=== PATIENT | female | born 1965 | race Caucasian/White ===

== ENCOUNTER 2016-02-19 14:05 | Emergency (ER) ==
[2016-02-19 14:45] LABS: MANUAL DIFF NEEDED? NO
[2016-02-19 14:51] LABS: URINE CULTURE NEEDED? NO; URINE MICRO REVIEW NEEDED? NO; URINE SOURCE CLEAN CATCH
[2016-02-19 14:56] LABS: BASO% 0.7 % (0.0-0.8); EOS# 0.09 X1000 (0.0-0.7); EOS% 1.2 % (0.0-10.0); HEMATOCRIT 38.5 % (37.0-47.0); HEMOGLOBIN 13.3 g/dL (12.0-16.0); LYMPH# 3.06 X1000 (1.2-3.4); LYMPH% 41.7 % (20.5-51.1); MCH 30.9 PG (27-31); MCHC 34.5 g/dL (33-37); MCV 89.3 FL (81-99); MONO# 0.39 X1000 (0.11-0.59); MONO% 5.3 % (1.7-9.3); MPV 9.9 FL (7.4-10.4); NEUT% 51.1 % (42.2-75.2); PLT 436 X1000 (130-400); RBC 4.31 XMIL (4.2-5.4)
[2016-02-19 14:57] LABS: BILIRUBIN URINE NEGATIVE (NEGATIVE); BLOOD URINE NEGATIVE (NEGATIVE); COLOR YELLOW; GLUCOSE URINE NEGATIVE (NEGATIVE); LEUKOCYTES URINE NEGATIVE (NEGATIVE); NITRITE URINE NEGATIVE (NEGATIVE); PROTEIN URINE NEGATIVE (NEGATIVE); SP GRAVITY URINE 1.008; TURBIDITY URINE CLEAR (CLEAR); UROBILINOGEN URINE NORMAL (NORMAL)
[2016-02-19 14:59] LABS: UR EPITHELIAL CELLS <10 /HPF (<10); URINE BACTERIA 1+ /HPF; URINE RBC <10 /HPF (<10); URINE WBC <10 /HPF (<10)
[2016-02-19 15:04] LABS: UR AMPHETAMINES QUAL NONE DETECTED (NONE DETECT); UR BARBITUATES QUAL NONE DETECTED (NONE DETECT); UR BENZODIAZEPIN QUAL PRESUMPTIVE POSITIVE (NONE DETECT); UR CANNABINOIDS QUAL NONE DETECTED (NONE DETECT); UR COCAINE QUAL NONE DETECTED (NONE DETECT); UR METHADONE QUAL NONE DETECTED (NONE DETECT); UR OPIATES QUAL PRESUMPTIVE POSITIVE (NONE DETECT); UR OXYCODONE QUAL NONE DETECTED (NONE DETECT); UR PCP QUAL NONE DETECTED (NONE DETECT)
[2016-02-19 15:14] LABS: AGAP 11; ALBUMIN 4.4 g/dL (3.5-5.0); ALKALINE PHOSPHATASE 53 U/L (32-104); BUN 14 mg/dL (8-22); CALCIUM 9.9 mg/dL (8.8-10.2); CHLORIDE 104 mmol/L (98-107); COSMO 283; GOT 25 U/L (10-30); GPT 32 U/L (10-36); POTASSIUM 3.8 mmol/L (3.5-5.1); SODIUM 142 mmol/L (136-145); TCO2 27 mmol/L (25-35); TOTAL BILIRUBIN 0.17 mg/dL (0.20-1.00); TOTAL PROTEIN 7.2 g/dL (6.3-8.3)
[2016-02-19 15:32] LABS: FREE T4 0.93 ng/dL (0.93-1.70)
--- NOTE | 2016-02-19 16:16 | PROVIDER DOCUMENTATION ---
HPI-General Adult - General Chief Complaint: Psych Stated Complaint: NEED EVAL Time Seen by Provider: 02/19/16 16:04 Source: patient Allergies/Adverse Reactions: Patient Allergies Allergy/AdvReac Type Severity Reaction Status Date / Time latex AdvReac Intermediate WHELPS AND Verified 02/19/16 15:08 ITCHING - History of Present Illness -Gen Adult Nature of Presenting Problems: Pt. is 50 yof that presents with c/o attempted suicide today by hanging. Pt. reports she was at [facility] for 11 days and was recently released. Pt. reports she has been taking her medications and states today the thought just came from no where. Pt. reports a Hx of PTSD, Major depressive disorder, and Anxiety. Pt. states she was in the process of tying the cord around her neck and her aunt came in and stopped her. Pt. reports some auditory and visual hallucinations. Location of Pain/Injury: reports: back (chronic). denies: head, face, mouth, neck, chest, upper extremity, hand(s), abdomen, pelvis, genitalia, lower extremity, feet, upper body, lower body, generalized Pain Radiation: reports: no radiation Quality of Pain: reports: aching. denies: burning, cramping, dull, fullness, indigestion, pressure, sharp, stabbing, tearing, throbbing, tightness Severity: reports: moderate. denies: mild, severe Onset/Duration: reports: abrupt, this morning Timing: reports: still present. denies: improving, gone now, resolved prior to arrival, intermittent, constant, changing over time, getting worse Context/Activities at Onset: reports: recent emotional stress. denies: recent physical stress, recent trauma history, possible bad food, cold exposure, out of country travel Modifying Factors: improves with: nothing Associated Symptoms: reports: anxiety, back/neck pain, other (Suicide attempt). denies: arm pain, chest pain, constipation, cough, diaphoresis, diarrhea, dizziness, EENT symptoms, fatigue, fever/chills, genitourinary problems, headaches, heartburn, joint pain, loss of appetite, malaise, muscle aches, sinus congestion/drainage, nausea, rash, seizure, shortness of breath, sensory/ motor loss, pain with inspiration, swelling/mass in abdomen, syncope, vomiting, weakness, trouble walking Similar Symptoms Previously?: Yes Recently seen or treated by another doctor?: Yes Review of Systems - Adult - REVIEW OF SYSTEMS - ADULT Constitutional: reports: see HPI. denies: chills, fever, fatique Eyes: reports: see HPI. denies: discharge, blurred vision, double vision, eye pain Ears, Nose, Mouth & Throat: reports: see HPI. denies: ear discharge, ear pain, nose pain, loose teeth, mouth/dental pain, throat swelling Cardiovascular: reports: see HPI. denies: chest pain, irregular heart rate, palpitations, syncope Respiratory: reports: see HPI. denies: cough, dyspnea on exertion, pleurisy, wheezing Gastrointestinal: reports: see HPI. denies: abdominal pain, hematemesis, diarrhea, nausea, vomiting Genitourinary: reports: see HPI. denies: dysuria, frequency, hematuria, incontinence, urgency Musculoskeletal: reports: see HPI, back pain. denies: bone pain, joint pain, muscle aches, neck pain Integumentary: reports: see HPI. denies: hives, hair loss, itching, nail changes, rash, skin thickening Neurological: reports: see HPI. denies: ataxia, headache/migraines, numbness, seizure, tremors Psychiatric: reports: see HPI, anxiety, depression, emotional problems, suicidal thoughts. denies: insomnia, panic attacks Endocrine: reports: see HPI. denies: cold intolerance, increased hunger, polyuria Past History - Adult - PAST MEDICAL HISTORY-ADULT Review of Records: reports: Old Records Reviewed, Nursing Assessment Review, Medications Reviewed, Social history reviewed & non-contributory. Major Childhood Illnesses: reports: denies history Cardiovascular: reports: HTN, hyperlipidemia Respiratory: reports: denies history Gastrointestinal: reports: diverticulosis, GERD, IBS Obstetrical/Gynecological: reports: denies history Genitourinary: reports: denies history Musculoskeletal: reports: arthritis, chronic pain, neck/back injury Neurological: reports: denies history Psychiatric: reports: anxiety, depression Endocrine/Immune: reports: denies history Other Conditions: reports: denies history - PRIOR SURGERIES/PROCEDURES Surgical/Procedure History: reports: back/neck - IMMUNIZATION STATUS Childhood Immunizations: See Nurse Assessment Flu Vaccine: See Nurse Assessment - FAMILY HISTORY Family History: reviewed, not pertinent Physical Exam-General - PHYSICAL EXAM-ADULT Initial Vital Signs Reviewed: Yes - CONSTITUTIONAL General Appearance: alert, moderate distress, thin, anxious. negative: obese, lethargic, slow to respond, obtunded, combative - EYES Eyes: PERRL/EOMI, pink conjunctivae. negative: conjuctival exudate, photophobia , subconjunctival hemorrhage - HEAD, EARS, NOSE, MOUTH & THROAT HENMT: normocephalic/atraumatic, moist mucous membranes. negative: angioedema, frontal tenderness - NECK Neck: non-tender, full range of motion, supple, normal inspection. negative: lymphadenopathy, trachial deviation, thyromegaly - RESPIRATORY Respiratory: lungs clear, normal breath sounds. negative: crackles, rales, rhonchi, stridor, wheezing - CARDIOVASCULAR Cardiovascular: normal peripheral pulses, regular rate, rhythm, no edema, no JVD , no murmur. negative: extra beats, friction rub, irregularly irregular - CHEST (BREASTS) Chest/Breast: deferred - GASTROINTESTINAL (ABDOMEN) Abdominal Exam: normal bowel sounds, non tender, soft. negative: distended, guarding, rigid, rebound, hernia, mass - GENITOURINARY Female Genitalia/Pelvic Exam: deferred Rectal Exam: deferred Hemoccult Exam: deferred - LYMPHATIC Lymphatic: no adenopathy. negative: axilla node tender, cervical node tenderness - MUSCULOSKELETAL Back Exam: normal inspection, no CVA tenderness, no vertebral tenderness. negative: ecchymosis, muscle spasm, vertebral tenderness Extremity: normal range of motion, non-tender, normal gait, normal inspection. negative: deformity, erythema, inflammation, swelling, tenderness Peripheral Pulses: radial (R): 2+, radial (L): 2+ - SKIN Integumentary: normal color, normal turgor, warm/dry. negative: cyanosis, diaphoresis, ecchymosis, erythema, jaundice, mottled, pallor, petechiae, purpura , rash, swelling, tenderness - NEUROLOGIC Neurologic: grossly normal, no motor/sensory deficits. negative: aphasia, facial droop, focal weakness, motor weakness, sensory deficit - PSYCHIATRIC Psych/Mental Status: oriented x 3, anxious, paranoid, other (suicidal) Progress - PLAN OF CARE/RESULTS Progress/Plan/Lab Results: Ike from [facility] states that he will find placement for the patient. Discussed results and plan of care with patient. Patient agrees with plan and verbalizes understanding. Vital Signs Temp Pulse Resp BP Pulse Ox 02/19/16 18:03 84 18 128/69 100 02/19/16 14:20 98.2 F 77 18 180/90 99 latex Adverse Reaction (Intermediate, Verified 02/19/16 15:08) WHELPS AND ITCHING Diazepam [Valium] 5 mg PO BID #60 tablet 02/13/16 Docusate Sodium [Colace] 100 mg PO BID #60 capsule 02/13/16 Fenofibrate [Tricor] 145 mg PO DAILY #0 tablet 02/13/16 Hydrocodone/APAP 10 mg/325 mg [[place]-10] 1 each PO Q8H PRN PRN #90 tablet Hyoscyamine [Levsin] 0.125 mg PO Q4H PRN PRN #0 tablet 02/13/16 Lamotrigine [Lamictal] 25 mg PO 0800,1400,2100 #90 tablet 02/13/16 Metoprolol [Lopressor] 25 mg PO BID #0 tablet 02/13/16 Olanzapine [Zyprexa] 5 mg PO QHS #30 tablet 02/13/16 Prazosin [Minipress] 1 mg PO QHS #30 capsule 02/13/16 Quetiapine [Seroquel] 100 mg PO QHS #0 tablet 02/13/16 Sertraline [Zoloft] 50 mg PO QAM #30 tablet 02/13/16 Tizanidine [Zanaflex] 2 mg PO BID #60 tablet 02/13/16 Dietary Diet Regular Diet Start WedFeb 18 1641 I&O 02/18/16 02/19/16 02/20/16 06:59 06:59 06:59 Output Total 50 Balance -50 Laboratory 02/19/16 02/19/16 02/19/16 14:42 14:42 14:32 WBC RBC Hgb Hct MCV MCH MCHC RDW Std Deviation Plt Count MPV Immature Gran % (Auto) Neut % (Auto) Lymph % (Auto) [place] % (Auto) Eos % (Auto) Baso % (Auto) Immature Gran # (Auto) Neut # (Auto) Lymph # (Auto) [place] # (Auto) Eos # (Auto) Baso # (Auto) Sodium Potassium Chloride Carbon Dioxide Anion Gap BUN Creatinine Estimated GFR/1.73 m2 BUN/Creatinine Ratio Glucose Calculated Osmolality Calcium Total Bilirubin AST ALT Alkaline Phosphatase Total Protein Albumin Globulin Albumin/Globulin Ratio Vitamin B12 1678 H TSH 2.87 Free T4 0.93 Urine Source CLEAN CATCH Urine Color YELLOW Urine Turbidity CLEAR Urine pH 6.0 Ur Specific Minier 1.008 Urine Protein NEGATIVE Ur Glucose (Stick) NEGATIVE Ur Ketones (Stick) NEGATIVE Urine Blood NEGATIVE Urine Nitrite NEGATIVE Urine Bilirubin NEGATIVE Urobilinogen Dipstick NORMAL Urine Leukocytes NEGATIVE Urine WBC (Auto) <10 Urine RBC (Auto) <10 U Epithel Cells (Auto) <10 Urine Bacteria (Auto) 1+ Urine Opiates Screen PRESUMPTIVE POSITIVE A Ur Oxycodone Screen NONE DETECTED Ur Methadone, Qual NONE DETECTED Ur Barbiturates Screen NONE DETECTED Ur Phencyclidine Scrn NONE DETECTED Ur Amphetamines Screen NONE DETECTED U Benzodiazepines Scrn PRESUMPTIVE POSITIVE A Urine Cocaine Screen NONE DETECTED U Cannabinoids Screen NONE DETECTED Plasma/Serum Ethyl Alc 02/19/16 02/19/16 02/19/16 14:32 14:32 14:32 WBC 7.33 RBC 4.31 Hgb 13.3 Hct 38.5 MCV 89.3 MCH 30.9 MCHC 34.5 RDW Std Deviation 12.3 Plt Count 436 H MPV 9.9 Immature Gran % (Auto) 0.0 Neut % (Auto) 51.1 Lymph % (Auto) 41.7 [place] % (Auto) 5.3 Eos % (Auto) 1.2 Baso % (Auto) 0.7 Immature Gran # (Auto) 0.00 Neut # (Auto) 3.74 Lymph # (Auto) 3.06 [place] # (Auto) 0.39 Eos # (Auto) 0.09 Baso # (Auto) 0.05 Sodium 142 Potassium 3.8 Chloride 104 Carbon Dioxide 27 Anion Gap 11 BUN 14 Creatinine 0.8 Estimated GFR/1.73 m2 > 60 BUN/Creatinine Ratio 18 Glucose 80 Calculated Osmolality 283 Calcium 9.9 Total Bilirubin 0.17 L AST 25 ALT 32 Alkaline Phosphatase 53 Total Protein 7.2 Albumin 4.4 Globulin 2.8 Albumin/Globulin Ratio 1.6 Vitamin B12 TSH Free T4 Urine Source Urine Color Urine Turbidity Urine pH Ur Specific [place] Urine Protein Ur Glucose (Stick) Ur Ketones (Stick) Urine Blood Urine Nitrite Urine Bilirubin Urobilinogen Dipstick Urine Leukocytes Urine WBC (Auto) Urine RBC (Auto) U Epithel Cells (Auto) Urine Bacteria (Auto) Urine Opiates Screen Ur Oxycodone Screen Ur Methadone, Qual Ur Barbiturates Screen Ur Phencyclidine Scrn Ur Amphetamines Screen U Benzodiazepines Scrn Urine Cocaine Screen U Cannabinoids Screen Plasma/Serum Ethyl Alc Orders Category Date Time Status Regular Diet Diet 02/19/16 16:42 Active ALCOHOL BLOOD Stat Lab 02/19/16 14:32 Completed CBC WITH ELECTRONIC DIFF [HEME] Stat Lab 02/19/16 14:32 Completed COMPREHENSIVE METABOLIC PANEL [CHEM] Stat Lab 02/19/16 14:32 Completed FREE T4 Stat Lab 02/19/16 14:32 Completed TSH Stat Lab 02/19/16 14:32 Completed URINALYSIS W/POSS RFLX CULT [URINALYSIS] Stat Lab 02/19/16 14:42 Completed URINE DRUG SCREEN Stat Lab 02/19/16 14:42 Completed VITAMIN B12 Stat Lab 02/19/16 14:32 Completed Hydrocodone/APAP 7.5 mg/325 mg [[place]-7.5] Med 02/19/16 16:20 Discontinued 1 each PO NOW ONE Lorazepam [Ativan] Med 02/19/16 17:59 Discontinued 1 mg IM NOW ONE Laboratory Tests 02/19/16 02/19/16 02/19/16 14:32 14:32 14:32 WBC 7.33 RBC 4.31 Hgb 13.3 Hct 38.5 MCV 89.3 MCH 30.9 MCHC 34.5 RDW Std Deviation 12.3 Plt Count 436 H MPV 9.9 Immature Gran % (Auto) 0.0 Neut % (Auto) 51.1 Lymph % (Auto) 41.7 [place] % (Auto) 5.3 Eos % (Auto) 1.2 Baso % (Auto) 0.7 Immature Gran # (Auto) 0.00 Neut # (Auto) 3.74 Lymph # (Auto) 3.06 [place] # (Auto) 0.39 Eos # (Auto) 0.09 Baso # (Auto) 0.05 Sodium 142 Potassium 3.8 Chloride 104 Carbon Dioxide 27 Anion Gap 11 BUN 14 Creatinine 0.8 Estimated GFR/1.73 m2 > 60 BUN/Creatinine Ratio 18 Glucose 80 Calculated Osmolality 283 Calcium 9.9 Total Bilirubin 0.17 L AST 25 ALT 32 Alkaline Phosphatase 53 Total Protein 7.2 Albumin 4.4 Globulin 2.8 Albumin/Globulin Ratio 1.6 Vitamin B12 TSH Free T4 Urine Source Urine Color Urine Turbidity Urine pH Ur Specific [place] Urine Protein Ur Glucose (Stick) Ur Ketones (Stick) Urine Blood Urine Nitrite Urine Bilirubin Urobilinogen Dipstick Urine Leukocytes Urine WBC (Auto) Urine RBC (Auto) U Epithel Cells (Auto) Urine Bacteria (Auto) Urine Opiates Screen Ur Oxycodone Screen Ur Methadone, Qual Ur Barbiturates Screen Ur Phencyclidine Scrn Ur Amphetamines Screen U Benzodiazepines Scrn Urine Cocaine Screen U Cannabinoids Screen Plasma/Serum Ethyl Alc 02/19/16 02/19/16 02/19/16 14:32 14:42 14:42 WBC RBC Hgb Hct MCV MCH MCHC RDW Std Deviation Plt Count MPV Immature Gran % (Auto) Neut % (Auto) Lymph % (Auto) [place] % (Auto) Eos % (Auto) Baso % (Auto) Immature Gran # (Auto) Neut # (Auto) Lymph # (Auto) [place] # (Auto) Eos # (Auto) Baso # (Auto) Sodium Potassium Chloride Carbon Dioxide Anion Gap BUN Creatinine Estimated GFR/1.73 m2 BUN/Creatinine Ratio Glucose Calculated Osmolality Calcium Total Bilirubin AST ALT Alkaline Phosphatase Total Protein Albumin Globulin Albumin/Globulin Ratio Vitamin B12 1678 H TSH 2.87 Free T4 0.93 Urine Source CLEAN CATCH Urine Color YELLOW Urine Turbidity CLEAR Urine pH 6.0 Ur Specific [place] 1.008 Urine Protein NEGATIVE Ur Glucose (Stick) NEGATIVE Ur Ketones (Stick) NEGATIVE Urine Blood NEGATIVE Urine Nitrite NEGATIVE Urine Bilirubin NEGATIVE Urobilinogen Dipstick NORMAL Urine Leukocytes NEGATIVE Urine WBC (Auto) <10 Urine RBC (Auto) <10 U Epithel Cells (Auto) <10 Urine Bacteria (Auto) 1+ Urine Opiates Screen PRESUMPTIVE POSITIVE A Ur Oxycodone Screen NONE DETECTED Ur Methadone, Qual NONE DETECTED Ur Barbiturates Screen NONE DETECTED Ur Phencyclidine Scrn NONE DETECTED Ur Amphetamines Screen NONE DETECTED U Benzodiazepines Scrn PRESUMPTIVE POSITIVE A Urine Cocaine Screen NONE DETECTED U Cannabinoids Screen NONE DETECTED Plasma/Serum Ethyl Alc Pt. has been accepted at [facility]. Departure - Departure Time of Disposition Order: 21:22 DIAGNOSIS: Suicidal ideations Depressed Qualifiers: Depression Type: major depressive disorder Major depression recurrence: recurrent Active/Remission status: currently active Major depression episode severity: severe Psychotic features: with psychotic features Qualified Code(s): F33.3 - Major depressive disorder, recurrent, severe with psychotic symptoms Disposition: [facility] Certified Medical Emergency: Emergent Condition: Stable Referrals: OLGA CARTER CRNP [Primary Care Provider] - Attestation - Physician/ Mid-level Attestation Patient care was provided by Mid-level provider (ALARM INSTALLATION TECHNICIAN/PA):: Yes Mid-level provider:: Genia Branch Mid-level documentation review:: The Mid-level provider documentation, treatment plan and medical decision making was reviewed by the physician who agrees with all treatment and medical decision making by the MLP.
[2016-02-19] MEDS ORDERED: NORCO-7.5 PO ONE (16:20)
[2016-02-19] MEDS ORDERED: ATIVAN IM ONE (17:59)
[2016-02-19] MEDS ORDERED: ATIVAN PO ONE (21:47)
[2016-02-19 21:54] VITALS: BP 135/73
== END 2016-02-19 21:55 ==
LOC: ED 14:05
DX: F33.3 Major depressive disorder, recurrent, severe with psychotic symptoms (principal); R45.851 Suicidal ideations; I10 Essential (primary) hypertension; E78.5 Hyperlipidemia, unspecified; M19.90 Unspecified osteoarthritis, unspecified site; G89.29 Other chronic pain; M54.9 Dorsalgia, unspecified; F41.9 Anxiety disorder, unspecified; F43.10 Post-traumatic stress disorder, unspecified; Z79.899 Other long term (current) drug therapy
CPT/HCPCS: 36415; 80053; 81001; 82607; 84439; 84443; 85025; 96372; G0480; J2060